=== PATIENT | female | born 1995 | race Caucasian/White ===

== ENCOUNTER 2018-06-10 21:04 | Emergency (ER) | payer OTHER ==
[~2018-06-10] VITALS: Ht 165.1 cm; Wt 78.5 kg
[2018-06-10 21:37] VITALS: Ht 165.1 cm; Wt 78.5 kg
[2018-06-11 00:32] VITALS: BP 147/79
== END 2018-06-11 00:32 | disposition home or self-care (01) ==
LOC: ED 21:04
DX: S61.011A Laceration without foreign body of right thumb without damage to nail, initial encounter (principal); W25.XXXA Contact with sharp glass, initial encounter; Y93.G1 Activity, food preparation and clean up; Y92.89 Other specified places as the place of occurrence of the external cause; Y99.8 Other external cause status
CPT/HCPCS: 90715; J2001